=== PATIENT | female | born 1965 | race Caucasian/White ===

== ENCOUNTER 2021-02-26 09:42 | Emergency (ER) | payer BC, SELFPAY ==
[2021-02-26 10:06] VITALS: BP 109/73; PULSE 95; RESP 18; TEMP 37.1; O2SAT 96; BMI 23.1
--- NOTE | 2021-02-26 10:26 | W.ED.HA ---
HPI - Headache General: Chief Complaint: Headache Stated Complaint: HEADACHE, COVID+ Time Seen by Provider: 02/26/21 09:49 History of Present Illness: HPI Narrative: 55-year-old female presents emergency room with a complaint of severe migraine. She has had a history of migraines in the past. She usually sees Dr. Chandler for them. Earlier this week she had a bit of a cough myalgias started getting headache was tested for Covid and came back positive one other family member in the home also has Covid. She does not meet any criteria for monoclonal antibody infusions. Last several days she is having worseningHeadache. She has some mild photophobia. Some nausea no vomiting. Her Covid symptoms have been relatively mild with the exception of the headache. She has a slight cough and sore throat but no significant short of breath the cough is nonproductive she is not really had any diarrhea. Her appetite has been very poor her myalgias have improved somewhat. I think she is taken at home for her migraine what initially was some Tylenol and ibuprofen and then took a single hydrocodone which helped some but did not completely relieve it. MD elicited complaint: migraine Onset description: gradually Location: frontal Quality & Timing: aching and throbbing Exacerbating factors: none Relieving factors: nothing Associated symptoms: Reports cough, fever(s), malaise and nausea; Deny chest pain, confusion, diaphoresis, eye pain, eye redness, lightheadedness, loss of vision, neck stiffness, numbness, paresthesias, photophobia, pre-syncope, rash, seizures, short of breath, sound sensitivity, syncope, vomiting or weakness Review of Systems Const: Reports: fever(s) and malaise; Denies: diaphoresis ENMT: Denies: throat pain, ear or mastoid pain, nasal discharge or nasal congestion Card: Denies: chest pain, lightheadedness, syncope or pre-syncope Resp: Denies: dyspnea, productive cough or non-productive cough GI: Reports: nausea; Denies: vomiting : Denies: flank pain, difficulty voiding, dysuria, urinary frequency or urinary urgency Skin/Breast: Denies: rash Neuro: Denies: confusion Physical Exam Const: COMMON NORMALS: no acute distress GENERAL APPEARANCE: cooperative and comfortable ORIENTATION/CONSCIOUSNESS: Yes awake, Yes oriented to person, Yes oriented to place and Yes oriented to time HENMT: COMMON NORMALS: normocephalic, atraumatic and hearing grossly normal bilaterally HEAD & SCALP: normocephalic and atraumatic Eye: DIRECT OPHTHALMOSCOPY: No photophobia Neck/C-Spine: COMMON NORMALS: no JVD Resp: COMMON NORMALS: normal respiratory effort, No retractions, No use of accessory muscles and clear to auscultation bilaterally AUSCULTATION: clear to auscultation bilaterally Cardio: COMMON NORMALS: no JVD, regular rate, regular rhythm and No murmurs present (Cardio) RATE: regular rate RHYTHM: regular rhythm GI: COMMON NORMALS: Soft to palpation and No hepatosplenomegaly present AUSCULTATION: Yes normoactive bowel sounds PALPATION: Yes Soft to palpation, No Tenderness to palpation present (GI), No Guarding due to palpation present (GI) and Yes No hepatosplenomegaly present Extremity: COMMON NORMALS: normal to inspection, capillary refill normal, no clubbing, cyanosis or edema, no calf tenderness and no pedal edema Neuro: SENSORIUM/ORIENTATION: Yes oriented to person, Yes oriented to place and Yes oriented to time Skin: COMMON NORMALS: no rashes or lesions noted GENERAL SKIN EXAM: no rashes or lesions noted Course Vital Signs: Vital signs: Vital Signs Temperature 98.7 F 02/26/21 10:06 Pulse Rate 102 H 02/26/21 13:23 Respiratory Rate 16 02/26/21 13:23 Blood Pressure 95/63 02/26/21 13:23 Pulse Oximetry 96 02/26/21 13:23 MDM - Headache MDM Narrative: Medical decision making narrative: Improved with medications. Organ to go ahead and discharge her home have her return if her breathing worsens. Gave hydrocodone promethazine to use as needed Discharge Plan Discharge Patient Disposition: Home Clinical Impression: Migraine, COVID-19 Condition: Stable Prescriptions: New hydrocodone-acetaminophen 5-325 mg tablet 1 tab PO Q6H PRN (Reason: pain) Qty: 14 RF: 0 promethazine 25 mg tablet 25 mg PO Q6H PRN (Reason: prn n/v headache) Qty: 14 RF: 0 Discharge Orders: Discharge ED (Routine); Ordered 02/26/21 Ordered By: Fabian Palmer Discharge Diet: Usual diet Discharge Activity: Increase activity as tolerated Patient Instructions: Opioid Safety Coding Level of Care Code ED [facility] for [facility]
[2021-02-26] MEDS: dihydroergotamine 1 mg/mL Inj IVP (10:37)
[2021-02-26] MEDS: ketorolac 30 mg/mL INJ IVP (10:37)
[2021-02-26] MEDS: sodium chloride 0.9% 1,000 ML 999 ML IV (10:38)
[2021-02-26] MEDS: promethazine 25 mg/mL SDV 1 mL IM (10:38)
[2021-02-26] MEDS: HYDROmorphone 1 mg/mL INJ 1 mL 0.5 MG IVP (12:01)
[2021-02-26] MEDS: dexamethasone 10 mg/mL INJ IVP (12:01)
[2021-02-26 12:05] VITALS: BP 133/81; PULSE 73; RESP 18; O2SAT 98
[2021-02-26 13:23] VITALS: BP 95/63; PULSE 102; RESP 16; O2SAT 96
== END 2021-02-26 13:24 | disposition home or self-care (01) ==
PROVIDERS: Emergency Provider Family Medicine
DX: G43.909 Migraine, unspecified, not intractable, without status migrainosus (principal); U07.1 COVID-19
CPT/HCPCS: 96361; 96372; 96374; 96375; 99284; 99291; J1100; J1110; J1170; J1885; J2550; J7030

== ENCOUNTER 2021-03-01 07:02 | Emergency (ER) | payer BC, SELFPAY ==
[2021-03-01] VITALS (13 sets, daily range): BP systolic 98–133; BP diastolic 66–85; PULSE 63–103; RESP 16–24; TEMP 36.9–37.1; O2SAT 88–99; BMI 23.0
--- NOTE | 2021-03-01 07:24 | ED_ITS ---
HPI - SOB/Dyspnea General: Chief Complaint: COVID symptoms Stated Complaint: headache, low O2 levels Time Seen by Provider: 03/01/21 07:23 History of Present Illness: HPI Narrative: 55-year-old female comes in today with some hypoxia. Patient was diagnosed with Covid 19, with symptoms starting 10 days ago. Patient checked her oxygen saturation this morning and it read 88%. Patient reports some mild shortness of breath. Patient denies any chest pain. Patient appears mildly unwell. Patient reports persistent headache for the last 10 days with her illness. Patient was given DHE on the with some improvement in the headache but within 12 to 24 hours she had return of her headache. Patient has been using some hydrocodone and Phenergan for control of the headache. Patient also reports some decrease and appetite throughout illness. Patient is 88% oxygen on room air in the emergency room. Was placed on 4 L of oxygen and went to 100%. Primary care provider is Dr. Chandler. Patient's chronic medical history includes migraines and hyperlipidemia. Patient takes atorvastatin routinely for her cholesterol. MD elicited complaint: shortness of breath Pertinent past history: other (COVID-19) Context: recent illness Timing: progressively worsening Severity: mild Exacerbating factors: exertion Review of Systems General: Reports: 10 or more systems reviewed and unremarkable except in HPI and below Resp: Reports: dyspnea Neuro: Reports: headache(s) Physical Exam Const: COMMON NORMALS: no acute distress and patient oriented x3 GENERAL APPEARANCE: cooperative HENMT: COMMON NORMALS: normocephalic and Normal external nose present HEAD & SCALP: normal to inspection and normocephalic NOSE: Normal external nose present MOUTH: Normal oral and palatal mucosa present Eye: GENERAL EYE: appearance normal, both eyes and all related structures Neck/C-Spine: COMMON NORMALS: full ROM Chest: COMMONS NORMALS: normal inspection of the chest Resp: COMMON NORMALS: normal respiratory effort EFFORT & INSPECTION: Yes able to speak in complete sentences AUSCULTATION: crackles (Light crackles in bilateral lung ered, air movement throughout.) Cardio: COMMON NORMALS: regular rate and regular rhythm RATE: regular rate RHYTHM: regular rhythm GI: COMMON NORMALS: Soft to palpation and non-tender PALPATION: Yes Soft to palpation Back/Pelvis: COMMON NORMALS: thoracic and lumbar spine normal to inspection Extremity: COMMON NORMALS: normal to inspection Neuro: COMMON NORMALS: patient oriented x3 and moves all extremities Psych: COMMON NORMALS: mental status grossly normal and cooperative Skin: COMMON NORMALS: no rashes or lesions noted GENERAL SKIN EXAM: no rashes or lesions noted Course ED course: 8:00, reviewed patient with Dr. Palmer regarding hypoxia on room air, chest x-ray fairly normal. He recommended we go ahead with the CTA for PE protocol of the chest to rule out PE secondary to COVID-19. Reviewed this with patient who is agreeable. 930, reviewed patient with Dr. Palmer. He recommended patient you would need home oxygen therapy and discharged to home if we can get her headache under con trol. Patient has had minimal improvement since the addition of DHE after no resolution from Reglan and Benadryl dosing. We will reassess at 1 hour after DHE. Vital Signs: Vital signs: Vital Signs Temperature 98.5 F 03/01/21 07:14 Pulse Rate 77 03/01/21 10:42 Respiratory Rate 16 03/01/21 10:41 Blood Pressure 133/85 03/01/21 09:30 Pulse Oximetry 97 03/01/21 10:41 MDM - SOB/Dyspnea MDM Narrative: Medical decision making narrative: Patient comes in today for concerns of hypoxia with Covid 19. Patient is on day 10 of illness. Patient was seen on the for complaints of migraine headache. Patient also reports headache today. On exam respirations are even lungs have good air movement with some mild crackles bilaterally. Vital signs are normal except for some mild elevation in pulse and oxygen saturation of 88 on room air. Differential diagnosis includes Covid pneumonia, pulmonary embolism, hypoxia due to COVID-19. Laboratory values noted a decrease in the white blood cell count 3.9, CMP was unremarkable, patient did have elevation in D-dimer, patient had some mild haziness in bilateral lung reed as reported by radiology suggesting a COVID-[address] scan for PE protocol indicated no pulmonary embolism but did see bilateral Covid pneumonia. Reviewed exam with patient with recommendations for treatment with home oxygen therapy. Headache was able to get control with DHE 1 mg. Patient was also given a dose of Reglan and Benadryl with minimal relief, and 15 of Toradol and 10 of dexamethasone for cessation of headache. I encourage patient drink plenty of fluids use albuterol inhaler as needed for respiratory difficulty. And to follow-up with primary care. Lab Data: Labs: Lab Results 03/01/21 03/01/21 03/01/21 Range/Units 07:43 08:00 08:00 WBC 3.9 L (4.0-10.0) 10^3/ uL RBC 4.39 (4.1-5.3) 10^6/u L Hgb 14.7 (11.5-15.3) g/dL Hct 43.7 (37.0-47.0) % MCV 99.5 H (81-99) fL MCH 33.5 (28.0-34.0) pg MCHC 33.6 (30.0-36.0) g/dL RDW 12.0 L (12.1-15.1) % Plt Count 176 (130-400) 10^3/c mm MPV 10.2 (7.4-10.4) fL Neut % (Auto) 72.1 % Lymph % (Auto) 19.5 % [place] % (Auto) 6.9 % Eos % (Auto) 0.5 % Baso % (Auto) 0.5 % Neut # (Auto) 2.81 (1.8-7.7) 10^3/u L Lymph # (Auto) 0.8 (0.8-4.8) 10^3/u L [place] # (Auto) 0.3 (0.2-0.9) 10^3/u L Eos # (Auto) 0.0 (0.0-0.8) 10^3/u L Baso # (Auto) 0.0 (0.0-0.1) 10^3/u L Nucleated RBC % (a uto) 0 % Nucleated RBCs # 0.0 /100WBC D-Dimer (0-0.59) ug/mIFE U Sodium 139 (136-145) mmol/L Potassium 3.4 L (3.5-5.1) mmol/L Chloride 103 (98-107) mmol/L Carbon Dioxide 24 (22-29) mmol/L Anion Gap 15.4 (5-19) BUN 14 (6-20) mg/dL Creatinine 0.6 (0.5-0.9) mg/dL GFR Calculation 103.4 (90-130) mL/min Glucose 89 (65-115) mg/dL Calculated Osmolal ity 288 (285-295) mOsm/k g Lactic Acid (0.5-2.2) mmol/L Calcium 8.6 (8.5-10.5) mg/dL Total Bilirubin 0.4 (0.15-1.2) mg/dL AST 30 (0-32) U/L ALT 32 (0-33) U/L Alkaline Phosphata se 63 (35-105) IU/L C-Reactive Protein 67.7 H (0.0-4.9) mg/L NT-Pro-B Natriuret Pep 128 H (0-125) pg/mL Total Protein 6.8 (6.6-8.7) g/dL Albumin 3.8 (3.5-5.2) g/dL Globulin 3.0 (1.3-4.6) g/dL Urine Color Yellow (Yellow) Urine Appearance Hazy A (CLEAR) Urine pH 5 (5-7) Ur Specific Gravit y 1.020 (1.005-1.030) Urine Protein Neg (Negative) Urine Glucose (UA) Norm (Normal) Urine Ketones 1+ H (Negative) Urine Blood Neg (Negative) Urine Nitrate Negative (Negative) Urine Bilirubin 1+ H (Negative) Urine Urobilinogen Norm (Negative) mg/dL Ur Leukocyte Belkis ase 2+ H (Negative) Urine RBC None (0-2) /hpf Urine WBC 40-55 H (0-5) /hpf Ur Squamous Epith Cells 5-10 H (0-5) /hpf Amorphous Sediment Not Reportable Urine Bacteria 2+ H (NONE) /hpf Urine Mucus 2+ /hpf 03/01/21 03/01/21 Range/Units 08:00 08:00 WBC (4.0-10.0) 10^3/ uL RBC (4.1-5.3) 10^6/u L Hgb (11.5-15.3) g/dL Hct (37.0-47.0) % MCV (81-99) fL MCH (28.0-34.0) pg MCHC (30.0-36.0) g/dL RDW (12.1-15.1) % Plt Count (130-400) 10^3/c mm MPV (7.4-10.4) fL Neut % (Auto) % Lymph % (Auto) % [place] % (Auto) % Eos % (Auto) % Baso % (Auto) % Neut # (Auto) (1.8-7.7) 10^3/u L Lymph # (Auto) (0.8-4.8) 10^3/u L [place] # (Auto) (0.2-0.9) 10^3/u L Eos # (Auto) (0.0-0.8) 10^3/u L Baso # (Auto) (0.0-0.1) 10^3/u L Nucleated RBC % (a uto) % Nucleated RBCs # /100WBC D-Dimer 3.88 H (0-0.59) ug/mIFE U Sodium (136-145) mmol/L Potassium (3.5-5.1) mmol/L Chloride (98-107) mmol/L Carbon Dioxide (22-29) mmol/L Anion Gap (5-19) BUN (6-20) mg/dL Creatinine (0.5-0.9) mg/dL GFR Calculation (90-130) mL/min Glucose (65-115) mg/dL Calculated Osmolal ity (285-295) mOsm/k g Lactic Acid 1.3 (0.5-2.2) mmol/L Calcium (8.5-10.5) mg/dL Total Bilirubin (0.15-1.2) mg/dL AST (0-32) U/L ALT (0-33) U/L Alkaline Phosphata se (35-105) IU/L C-Reactive Protein (0.0-4.9) mg/L NT-Pro-B Natriuret Pep (0-125) pg/mL Total Protein (6.6-8.7) g/dL Albumin (3.5-5.2) g/dL Globulin (1.3-4.6) g/dL Urine Color (Yellow) Urine Appearance (CLEAR) Urine pH (5-7) Ur Specific Gravit y (1.005-1.030) Urine Protein (Negative) Urine Glucose (UA) (Normal) Urine Ketones (Negative) Urine Blood (Negative) Urine Nitrate (Negative) Urine Bilirubin (Negative) Urine Urobilinogen (Negative) mg/dL Ur Leukocyte Belkis ase (Negative) Urine RBC (0-2) /hpf Urine WBC (0-5) /hpf Ur Squamous Epith Cells (0-5) /hpf Amorphous Sediment Urine Bacteria (NONE) /hpf Urine Mucus /hpf Discharge Plan Discharge Condition: Stable Prescriptions: No Action hydrocodone-acetaminophen 5-325 mg tablet 1 tab PO Q6H PRN (Reason: pain) Qty: 14 RF: 0 promethazine 25 mg tablet 25 mg PO Q6H PRN (Reason: prn n/v headache) Qty: 14 RF: 0 Coding Level of Care Code ED [employer] Vender for Chg Fwd Exam Comprehensive
--- NOTE | 2021-03-01 07:25 | XRR_ITS ---
PROCEDURE INFORMATION: Exam: XR Chest Exam date and time: 03/01/2021 7:40 AM Age: 55 years old Clinical indication: Dyspnea; Additional info: Dyspnea, covid + TECHNIQUE: Imaging protocol: XR of the chest. Views: 1 view. COMPARISON: No relevant prior studies available. FINDINGS: Lungs: There is scattered bilateral interstitial infiltration which may be consistent with a interstitial viral pneumonia. There is no focal airspace consolidation. Pleural spaces: Unremarkable. No pleural effusion. No pneumothorax. Heart/Mediastinum: Unremarkable. No cardiomegaly. Bones/joints: Unremarkable. XR/XR chest 1V portable [id number] IMPRESSION: Patchy hazy interstitial infiltrates consistent with viral interstitial pneumonia.
--- NOTE | 2021-03-01 08:02 | CT_ITS ---
WS: [id number] CTA OF THE CHEST WITH PULMONARY EMBOLISM PROTOCOL TECHNIQUE: High-resolution contrast enhanced CTA of the chest with coronal and sagittal reformatted i mages with pulmonary embolism protocol. MIP images are also reviewed. CLINICAL INFORMATION: hypoxia, covid + 10 days COMPARISON: None. DLP: 549.[address] scans at [facility] use at least one of these dose optimization techniques: automat ed exposure control; mA and/or kV adjustment per patient size (includes targeted exams where dose is matched to clinical indication); or iterative reconstruction. FINDINGS: Proximal main pulmonary arteries are normal. Normal segmental and subsegmental pulmonary arteries. No evidence of pulmonary embolus. Normal caliber thoracic aorta. Hazy groundglass infiltrates in the mid and lower lungs bilaterally tamayo spicious for covid19 pneumonia. No focal consolidation or pleural fluid. Enlarged right hilar lymph n ode measuring 13 mm likely reactive. No axillary lymphadenopathy. Adrenal glands are normal. CT/CT angio chest PE protcl [id number] IMPRESSION: 1. No evidence of pulmonary embolus. 2. Hazy groundglass infiltrates in the mid and lower lungs bilaterally suspici ous for COVID 19 pneumonia. 3. No focal consolidation or pleural fluid.
[2021-03-01] MEDS: diphenhydrAMINE 50 mg/mL SDV 1mL 12.5 MG IVP (08:16)
[2021-03-01] MEDS: metoclopramide 5 mg/mL SDV 2 mL 10 MG IVP (08:16)
[2021-03-01] MEDS: sodium chloride 0.9% 500 ML 999 ML IV (08:16)
[2021-03-01] MEDS: iohexol 350 mg/mL 100 mL Btl IV (08:35)
[2021-03-01 08:43] LABS: Blood Urine Neg (Negative); Glucose Urine UA Norm (Normal); Ketones Urine 1+ (Negative); Protein Urine Neg (Negative); Urine Appearance Hazy (CLEAR); Urine Color Yellow (Yellow); pH Urine 5 (5-7)
[2021-03-01 08:43] LABS: Basophils % 0.5 %; Eosinophils % 0.5 %; Hematocrit 43.7 % (37.0-47.0); Hemoglobin 14.7 g/dL (11.5-15.3); Lymphocytes # 0.8 10^3/uL (0.8-4.8); Lymphocytes % 19.5 %; Mean Corpuscular HGB Conc 33.6 g/dL (30.0-36.0); Mean Corpuscular Hemoglobin 33.5 pg (28.0-34.0); Mean Corpuscular Volume 99.5 fL (81-99); Mean Platelet Volume 10.2 fL (7.4-10.4); Monocytes # 0.3 10^3/uL (0.2-0.9); Monocytes % 6.9 %; Neutrophils # 2.81 10^3/uL (1.8-7.7); Neutrophils % 72.1 %; Nucleated Red Blood Cells % 0 %; Platelet Count 176 10^3/cmm (130-400); Red Blood Count 4.39 10^6/uL (4.1-5.3); White Blood Count 3.9 10^3/uL (4.0-10.0)
[2021-03-01 08:44] LABS: Add Urine Culture? Yes; Add Urine Microscopic? YES; Bacteria Urine 2+ /hpf; Bilirubin Urine 1+ (Negative); Leukocyte Esterase Urine 2+ (Negative); Mucus Urine 2+ /hpf; Nitrate Urine Negative (Negative); Urobilinogen Urine Norm (Negative); WBC Urine 40-55 /hpf (0-5)
[2021-03-01 08:55] LABS: D Dimer 3.88 ug/mIFEU (0-0.59); Lactic Sepsis W/Reflex 1.3 mmol/L (0.5-2.2)
[2021-03-01 09:13] LABS: Alanine Aminotransferase 32 U/L (0-33); Albumin Level 3.8 g/dL (3.5-5.2); Alkaline Phosphatase 63 IU/L (35-105); Anion Gap 15.4 (5-19); Aspartate Amino Transferase 30 U/L (0-32); Blood Urea Nitrogen 14 mg/dL (6-20); C Reactive Protein 67.7 mg/L (0.0-4.9); Calcium 8.6 mg/dL (8.5-10.5); Carbon Dioxide 24 mmol/L (22-29); Chloride 103 mmol/L (98-107); Glomerular Filtration Rate 103.4 mL/min (90-130); Glucose 89 mg/dL (65-115); NT Pro B Type Natriuretic Pept 128 pg/mL (0-125); Osmolality Calculated 288 mOsm/kg (285-295); Potassium 3.4 mmol/L (3.5-5.1); Sodium 139 mmol/L (136-145); Total Bilirubin 0.4 mg/dL (0.15-1.2); Total Protein 6.8 g/dL (6.6-8.7)
[2021-03-01] MEDS: dihydroergotamine 1 mg/mL Inj IVP (09:18)
[2021-03-01] MEDS: albuterol 8 gm MDI 2 PUFF INHALATION (10:34)
[2021-03-01] MEDS: dexamethasone 10 mg/mL INJ IVP (11:05)
[2021-03-01] MEDS: ketorolac 30 mg/mL INJ 15 MG IVP (11:05)
== END 2021-03-01 12:24 | disposition home or self-care (01) ==
PROVIDERS: Emergency Provider Nurse Practitioner Family
DX: U07.1 COVID-19 (principal)
CPT/HCPCS: 71045; 71275; 80053; 81001; 83605; 83880; 85025; 85378; 86140; 87086; 94640; 96374; 96375; 99284; J1100; J1110; J1200; J1885; J2765; J3535; J7040; Q9967

== ENCOUNTER → 2022-07-13 13:45 | Outpatient (BNVA) | payer BC, SELFPAY | PROVIDERS: Visit Provider Podiatrist Foot & Ankle Surgery | DX: M21.611 Bunion of right foot (principal); M21.612 Bunion of left foot | CPT/HCPCS: 73630 ==